=== PATIENT | female | born 1990 | race Two or more races ===

== ENCOUNTER 2018-03-04 14:22 | Outpatient (CLI) | payer OTHER ==
[~2018-03-04 14:22] MED LIST: AMOXICILLIN125 MG PO; PROVIDA DHA CA1 EACH PO; TYLENOL325 MG PO
== END 2018-03-04 14:41 | disposition home or self-care (01) ==
LOC: SONOGRAMA 14:22
DX: O02.0 Blighted ovum and nonhydatidiform mole (principal); O02.1 Missed abortion

== ENCOUNTER 2020-09-08 22:03 | Outpatient (CLI) | payer OTHER | END 2020-09-08 22:14 | disposition home or self-care (01) | LOC: OBS/DEL 22:03 | PROVIDERS: ATTEND Specialist | DX: O26.893 Other specified pregnancy related conditions, third trimester (principal); R10.2 Pelvic and perineal pain; Z3A.36 36 weeks gestation of pregnancy ==

== ENCOUNTER 2020-09-13 12:45 | Inpatient (IN) | payer OTHER ==
[~2020-09-13] VITALS: Ht 167.6 cm; Wt 3.2 kg
== END 2020-09-25 12:24 | disposition home or self-care (01) | DRG 788 ==
LOC: O/R 09-22 20:06 → SURG-SUITE 09-22 20:06 → LDR 09-22 20:06 → O/R 09-22 22:11 → SURG-SUITE 09-22 23:34 → OB/GYN 09-30 12:45
PROVIDERS: ADMIT Specialist; ATTEND Specialist
PROC: 4A1HXFZ Monitoring of Products of Conception, Cardiac Rhythm, External Approach (ICD-10-PCS; 2020-09-22)
PROC: 10D00Z1 Extraction of Products of Conception, Low, Open Approach (ICD-10-PCS; principal; 2020-09-22 23:00)
DX: O82 Encounter for cesarean delivery without indication (principal); O42.02 Full-term premature rupture of membranes, onset of labor within 24 hours of rupture; O24.420 Gestational diabetes mellitus in childbirth, diet controlled; Z3A.38 38 weeks gestation of pregnancy; Z37.0 Single live birth